=== PATIENT | female | born 1995 | race Caucasian/White ===

== ENCOUNTER 2021-03-11 17:47 | Emergency (ER) | payer OTHER ==
[~2021-03-11] VITALS: Ht 167.6 cm; Wt 136.1 kg
[~2021-03-11 17:47] MED LIST: ENSKYCE1 EACH PO; FLUOXETINE HCL20 MG PO; VITAMIN D5000 UNIT PO
== END 2021-03-12 | disposition home or self-care (01) ==
LOC: ED 17:47
DX: J20.8 Acute bronchitis due to other specified organisms (principal); Z20.822 Contact with and (suspected) exposure to COVID-19; Z87.891 Personal history of nicotine dependence
CPT/HCPCS: 71045; 80053; 85025; 99283-25; C9803; U0003

== ENCOUNTER 2021-12-09 03:20 | Inpatient (IN) | payer OTHER ==
[~2021-12-09] VITALS: Ht 167.6 cm; Wt 141.1 kg
--- NOTE | 2021-12-09 04:54 | NUR ---
PT WAS SWABBED FOR COVID 19
--- NOTE | 2021-12-09 05:59 | PR ---
[facility] [address] [facility] [place] [facility] [place], [place] [address] Signed Progress Notes IP Datetime Report Generated by NAYA: 12/09/2021 05:59 PROGRESS NOTES: [id number] Impression: Normal Progression of Labor; Reassuring Heart Rate Procedures: Scalp Electrode; Sterile Vag Exam Plan: Continue Present Management VITAL SIGNS: [id number] Vital Signs: Reviewed VS Notable Details: mild HTN EXAM: [id number] Dilatation: 4.0 Effacement: 90 Station: -1 Contractions: q 2 to 5 min MEMBRANES: [id number] Amniotic Fluid Color: Clear ROM Note: pt states rupture time 0230 today Comments: Progressing. FSE placed as [place] not working well at this time. FETUS A: [id number] FHR Baseline: 130 Variability: Moderate 6-25bpm Accelerations: 15X15 Decelerations: Variable FHR Category: Category II Presentation: Vertex Comments on Fetus A: occ mild variable FETUS B: [id number] Signing Physician: Taryn Rios MD Copies: ~ *Electronically Signed* 12/09/21 0559 TARYN RIOS MD PATIENT NAME: NII GRANT PROGRESS NOTE DATE OF : 95 PHYSICIAN: TARYN RIOS MD RPT #: [id number] REPORT IS CONFIDENTIAL AND NOT TO BE RELEASED WITHOUT AUTHORIZATION
--- NOTE | 2021-12-09 08:01 | PR ---
[facility] [address] [facility] [place], [place] [address] Signed Progress Notes IP Datetime Report Generated by CPN: 12/09/2021 08:01 PROGRESS NOTES: [id number] Impression: Normal Progression of Labor; Reassuring Heart Rate Procedures: Epidural Placement Plan: Continue Present Management; Anticipate Vaginal Delivery VITAL SIGNS: [id number] Vital Signs: Reviewed VS Notable Details: mild HTN EXAM: [id number] Dilatation: 9.0 Effacement: 100 Station: -1 Contractions: q 2 to 5 min MEMBRANES: [id number] Amniotic Fluid Color: Clear ROM Note: pt states rupture time 0230 today Comments: Comfortable with Epidural (just received). Progressing well. 9 cm pr RN. Due for 2nd PCN dose now. Will continue close monitoring. FETUS A: [id number] FHR Baseline: 130 Variability: Moderate 6-25bpm Accelerations: 15X15 Decelerations: Variable FHR Category: Category II Presentation: Vertex Comments on Fetus A: occ mild variable FETUS B: [id number] Signing Physician: Yo Guerin MD Copies: ~ *Electronically Signed* 12/09/21 08 YO GUERIN MD PATIENT NAME: NII GRANT PROGRESS NOTE DATE OF : 95 PHYSICIAN: YO GUERIN MD RPT #: [id number] REPORT IS CONFIDENTIAL AND NOT TO BE RELEASED WITHOUT AUTHORIZATION
--- NOTE | 2021-12-09 09:08 | PR ---
[facility] [place] [facility] [address] [facility] [place], [place] [address] Signed Progress Notes IP Datetime Report Generated by CPN: 12/09/2021 09:08 PROGRESS NOTES: [id number] Impression: Normal Progression of Labor Procedures: Epidural Placement Plan: Continue Present Management; Anticipate Vaginal Delivery VITAL SIGNS: [id number] Vital Signs: Reviewed VS Notable Details: mild HTN EXAM: [id number] Dilatation: 10.0 Effacement: 100 Station: 1 Contractions: q 2 to 5 min MEMBRANES: [id number] Membranes Status: Ruptured Amniotic Fluid Color: Clear ROM Note: pt states rupture time 0230 today Comments: Comfortable with Epidural. Will start pushing. FETUS A: [id number] FHR Baseline: 130 Variability: Moderate 6-25bpm Accelerations: 15X15 Decelerations: Variable FHR Category: Category II Presentation: Vertex Comments on Fetus A: occ mild variable FETUS B: [id number] Signing Physician: Oscar Guerin MD Copies: ~ *Electronically Signed* 12/09/21 0908 OSCAR GUERIN MD PATIENT NAME: DEVONShannonNII REBA PROGRESS NOTE DATE OF : 95 PHYSICIAN: OSCAR GUERIN MD RPT #: [id number] REPORT IS CONFIDENTIAL AND NOT TO BE RELEASED WITHOUT AUTHORIZATION
--- NOTE | 2021-12-09 09:37 | PR ---
[facility] [address] [facility] [place], [place] [address] Signed Progress Notes IP Datetime Report Generated by CPN: 12/09/2021 09:37 PROGRESS NOTES: [id number] Impression: Normal Progression of Labor Procedures: Epidural Placement Plan: Continue Present Management; Anticipate Vaginal Delivery VITAL SIGNS: [id number] Vital Signs: Reviewed VS Notable Details: mild HTN EXAM: [id number] Dilatation: 10.0 Effacement: 100 Station: 1 Contractions: q 2 to 5 min MEMBRANES: [id number] Membranes Status: Ruptured Amniotic Fluid Color: Clear ROM Note: pt states rupture time 0230 today Comments: Pushing well. Continue pushing. FETUS A: [id number] FHR Baseline: 130 Variability: Moderate 6-25bpm Accelerations: 15X15 Decelerations: Variable FHR Category: Category II Presentation: Vertex Comments on Fetus A: occ mild variable FETUS B: [id number] Signing Physician: Oscar Guerin MD Copies: ~ *Electronically Signed* 12/09/21 0937 OSCAR GUERIN MD PATIENT NAME: DEVONShannonNII REBA PROGRESS NOTE DATE OF : 95 PHYSICIAN: OSCAR GUERIN MD RPT #: [id number] REPORT IS CONFIDENTIAL AND NOT TO BE RELEASED WITHOUT AUTHORIZATION
--- NOTE | 2021-12-10 10:55 | PR ---
[facility] [address] [place] [address] Signed PP Progress Notes Datetime Report Generated by CPN: 12/10/2021 10:55 SUBJECTIVE: [id number] Pain: Within Normal Limits Nausea/Vomiting: Denies Vital Signs: [id number] Vital Signs: Reviewed; Within Normal Limits Notable Details: PP Hgb/Hct = 11.6/36.1 EXAM: Ongoing Abdomen/Uterus: Normal Lochia: Normal Extremities: Normal Exam Comments: obese IMPRESSION/PLAN/PROCEDURES: [id number] Impression: Normal Progression Plan: Continue Present Management Procedures: None Progress Notes: Doing well, without complaint. SItting up in chair, moving around without difficulty. Signing Physician: Yo Guerin MD Copies: ~ *Electronically Signed* 12/10/21 1055 YO GUERIN MD PATIENT NAME: NII GRANT PROGRESS NOTE DATE OF : 95 PHYSICIAN: YO GUERIN MD RPT #: [id number] REPORT IS CONFIDENTIAL AND NOT TO BE RELEASED WITHOUT AUTHORIZATION
--- NOTE | 2021-12-11 08:45 | PR ---
[facility] [address] [facility] [place] [address] Signed PP Progress Notes Datetime Report Generated by CPN: 12/11/2021 08:45 SUBJECTIVE: [id number] Pain: Within Normal Limits Nausea/Vomiting: Denies Vital Signs: [id number] Vital Signs: Reviewed; Within Normal Limits Notable Details: PP Hgb/Hct = 11.6/36.1 EXAM: Ongoing Abdomen/Uterus: Normal Lochia: Normal Extremities: Normal Exam Comments: obese IMPRESSION/PLAN/PROCEDURES: [id number] Impression: Normal Progression Plan: Discharge Procedures: None Progress Notes: Doing well, without complaint, ready to go home. Signing Physician: Yo Guerin MD Copies: ~ *Electronically Signed* 12/11/21 0845 YO GUERIN MD PATIENT NAME: NII GRANT PROGRESS NOTE DATE OF : 95 PHYSICIAN: YO GUERIN MD RPT #: [id number] REPORT IS CONFIDENTIAL AND NOT TO BE RELEASED WITHOUT AUTHORIZATION
== END 2021-12-11 13:05 | disposition home or self-care (01) | DRG 805 ==
LOC: FBCO 03:20 → FBC 03:56
PROVIDERS: ADMIT General Practice; ATTEND General Practice
PROC: 10E0XZZ Delivery of Products of Conception, External Approach (ICD-10-PCS; principal; 2021-12-09)
PROC: 0HQ9XZZ Repair Perineum Skin, External Approach (ICD-10-PCS; 2021-12-09)
PROC: 3E0R3BZ Introduction of Anesthetic Agent into Spinal Canal, Percutaneous Approach (ICD-10-PCS; 2021-12-09)
PROC: 00HU33Z Insertion of Infusion Device into Spinal Canal, Percutaneous Approach (ICD-10-PCS; 2021-12-09)
PROC: 10H073Z Insertion of Monitoring Electrode into Products of Conception, Via Natural or Artificial Opening (ICD-10-PCS; 2021-12-09)
DX: O42.013 Preterm premature rupture of membranes, onset of labor within 24 hours of rupture, third trimester (principal); O60.14X0 Preterm labor third trimester with preterm delivery third trimester, not applicable or unspecified; Z37.0 Single live birth; O10.92 Unspecified pre-existing hypertension complicating childbirth; Z3A.35 35 weeks gestation of pregnancy; Z20.822 Contact with and (suspected) exposure to COVID-19; O70.9 Perineal laceration during delivery, unspecified; O99.214 Obesity complicating childbirth; E66.01 Morbid (severe) obesity due to excess calories; O99.344 Other mental disorders complicating childbirth; F41.9 Anxiety disorder, unspecified; F32.A Depression, unspecified; Z79.899 Other long term (current) drug therapy; Z87.891 Personal history of nicotine dependence; Z79.82 Long term (current) use of aspirin
CPT/HCPCS: 01960; 85027; A9270; J2405; J2540; J2590; J2795; J3010; J7121; U0003

== ENCOUNTER 2023-01-10 08:47 | Inpatient (IN) | payer OTHER ==
[~2023-01-10] VITALS: Ht 170.2 cm; Wt 143.8 kg
--- NOTE | 2023-01-10 11:35 | PR ---
[facility] [address] [place], [place] [address] Signed Progress Notes IP Datetime Report Generated by CPN: 01/10/2023 11:35 PROGRESS NOTES: [id number] Impression: Normal Progression of Labor; Reassuring Heart Rate Procedures: Intrauterine Pressure Catheter; Sterile Vag Exam Plan: Continue Present Management; Anticipate Vaginal Delivery Informed Consent Obtain: Vaginal Delivery VITAL SIGNS: [id number] Vital Signs: Reviewed VS Notable Details: Mildly elevated BPs EXAM: [id number] Dilatation: 9.5 Effacement: 100 Station: 1 Contractions: 3-4 MEMBRANES: [id number] Comments: Insulin drip started per protocol. Pt comfortable w/ contractions. Pt unable to feel contractions. Discussed IUPC to monitor intrauterine environment and to help w/ timing pushing in second stage of labor. All questions answered. Anticipate soon. FETUS A: [id number] FHR Baseline: 125 Variability: Moderate 6-25bpm Accelerations: 15X15 Decelerations: None FHR Category: Category I Presentation: Vertex Comments on Fetus A: No evidence of metabolic acidosis FETUS B: [id number] Signing Physician: Jonathan Reddy DO Copies: ~ *Electronically Signed* 01/10/23 7686 JONATHAN REDDY (CAMRON) DO PATIENT NAME: NII GRANT REBA PROGRESS NOTE DATE OF : 95 PHYSICIAN: JONATHAN REDDY (JD) DO RPT #: [id number] REPORT IS CONFIDENTIAL AND NOT TO BE RELEASED WITHOUT AUTHORIZATION
[2023-01-11] MEDS ORDERED: NIFEDIPINE ER90 MG PO (10:26)
--- NOTE | 2023-01-11 10:28 | PR ---
[facility] [address] [facility] [place], [place] [address] Signed PP Progress Notes Datetime Report Generated by CPN: 01/11/2023 10:28 SUBJECTIVE: [id number] Pain: Within Normal Limits Nausea/Vomiting: Denies Flatus: Yes Bowel Movement: No Vital Signs: [id number] Vital Signs: Reviewed Notable Details: Elevated systolic BP Cardiovascular: Normal Respiratory: Normal Abdomen/Uterus: Normal Lochia: Normal CVA Tenderness: Normal Extremities: Normal Incision: Not Applicable Progress: Not Applicable Exam Comments: Fundus firm U-2 nontender IMPRESSION/PLAN/PROCEDURES: [id number] Impression: Normal Progression Other Impression: Pt desires bottle feeding Progress Notes: Pt seen and examined. Doing well. Ambulating, voiding, and tolerating full diet. Pain and lochia minimal. Pt desires bottlefeeding and declines consult. No WOOD, RUQ pain, or visual changes. Moderately elevated BPs. Med rec completed and will continue Procardia XL 90mg po daily and monitor BPs. Signing Physician: Jonathan Reddy DO Copies: ~ *Electronically Signed* 01/11/23 1028 JONATHAN REDDY (CAMRON) DO PATIENT NAME: NII GRANT PROGRESS NOTE DATE OF : 95 PHYSICIAN: JONATHAN REDDY) DO RPT #: [id number] REPORT IS CONFIDENTIAL AND NOT TO BE RELEASED WITHOUT AUTHORIZATION
--- NOTE | 2023-01-12 09:00 | PR ---
[facility] [address] [place], [place] [address] Signed PP Progress Notes Datetime Report Generated by CPN: 01/12/2023 09:00 SUBJECTIVE: [id number] Pain: Within Normal Limits Nausea/Vomiting: Denies Flatus: Yes Bowel Movement: No Vital Signs: [id number] Vital Signs: Reviewed Notable Details: Mildly elevated BPs Cardiovascular: Normal Respiratory: Normal Abdomen/Uterus: Normal Lochia: Normal Vulva/Perineum: Not Done Breasts: Not Done CVA Tenderness: Normal Extremities: Normal Incision: Not Applicable Progress: Not Applicable Exam Comments: Fundus firm U-2 (exam limited by body habitus) IMPRESSION/PLAN/PROCEDURES: [id number] Impression: Normal Progression Other Impression: CHTN Plan: Continue Present Management Other Plans: Increase procardia XL to 90mg po daily Procedures: None Progress Notes: Pt seen and examined. Doing well. Ambulating, voiding, and tolerating full diet. Pain and lochia minimal. Bottlefeeding well. No fevers/chills or other concerns. No WOOD, RUQ pain,or visual changes. Mildly elevated BPs w/ procardia XL 30mg. Reviewed d/c instructions in detail. Plan D/C home today w/ increase procadia XL to 90mg PO daily (pt already has robust supply of this at home). Unsure of plans for pp contraception. All questions answered. F/U in 3- days for BP check on FBC. Signing Physician: Jonathan Reddy DO *Electronically Signed* 01/12/23 0900 JONATHAN REDDY) DO PATIENT NAME: NII GRANT PROGRESS NOTE DATE OF : 95 PHYSICIAN: JONATHAN REDDY (JD) DO RPT #: [id number] REPORT IS CONFIDENTIAL AND NOT TO BE RELEASED WITHOUT AUTHORIZATION
== END 2023-01-12 10:10 | disposition home or self-care (01) | DRG 806 ==
LOC: FBCO 08:47 → FBC 09:06
PROVIDERS: ADMIT Obstetrics & Gynecology; ATTEND Obstetrics & Gynecology
PROC: 10E0XZZ Delivery of Products of Conception, External Approach (ICD-10-PCS; principal; 2023-01-10)
PROC: 00HU33Z Insertion of Infusion Device into Spinal Canal, Percutaneous Approach (ICD-10-PCS; 2023-01-10)
PROC: 3E0R3BZ Introduction of Anesthetic Agent into Spinal Canal, Percutaneous Approach (ICD-10-PCS; 2023-01-10)
DX: O24.424 Gestational diabetes mellitus in childbirth, insulin controlled (principal); O10.92 Unspecified pre-existing hypertension complicating childbirth; Z37.0 Single live birth; O99.324 Drug use complicating childbirth; O99.214 Obesity complicating childbirth; E66.01 Morbid (severe) obesity due to excess calories; F12.90 Cannabis use, unspecified, uncomplicated; Z67.40 Type O blood, Rh positive; Z20.822 Contact with and (suspected) exposure to COVID-19; Z3A.35 35 weeks gestation of pregnancy; O99.824 Streptococcus B carrier state complicating childbirth; O99.334 Smoking (tobacco) complicating childbirth; F17.210 Nicotine dependence, cigarettes, uncomplicated
CPT/HCPCS: 36415; 80053; 82565; 82570; 83615; 84156; 84550; 85027; 86850; 86900; 86901; 87502; A9270; C9803; J1815; J2405; J2540; J2590; J2795; J7042; J7121; U0003